=== PATIENT | male | born 1980 | race Caucasian/White ===

== ENCOUNTER 2024-08-03 18:17 | Emergency (ER) | payer SELFPAY ==
--- NOTE | 2024-08-03 19:30 | ED.GENMED ---
History of Present Illness
General
Chief Complaint: Suicidal Ideation
Source: patient, police and other (crisis)
Exam Limitations: none
Time Seen by Provider: 08/03/24 18:20
History of Present Illness
History of Present Illness:
Patient brought to ED for SI. According to police he threatened to kill self. was in possession of gun and knifes. No prior history of crisis intervention.
Past History
Past History
ED Past Medical History: Other (Diverticulitis)
ED Past Surgical History: Bowel resection (temporary colostomy 2 mos ago )
Social History
Tobacco: Non-smoker
Alcohol: Occasional (admits to drinking [employer])
Drug: None
Review of Systems
Review of Systems
Allergies reviewed?: Yes
All Other Systems: ROS reviewed and negative except as documented in HPI and ROS
Constitutional: Reports no symptoms
EENT: Reports no symptoms
Respiratory: Reports no symptoms
Cardiac: Reports no symptoms
ABD/GI: Reports no symptoms (s/p temporary colostomy 2 mos ago)
: Reports no symptoms
Musculoskeletal: Reports no symptoms
Skin: Reports other (lower abdominal dressing intact. S/p post op infection States he has nursing services in home daily for dressing changes.)
Neurological: Reports no symptoms
Psychiatric: Reports no symptoms
Phy Exam
General Physical Exam
General Presentation: well appearing
General age: appears stated age
General Skin: warm and dry
General Habitus: normal
General Mental: alert
General Hydration: appears well hydrated
Neurological Exam
Neurological Exam: alert, oriented x3, no motor deficits and normal gait
Musculoskeletal Exam
Musculoskeletal Exam: full ROM
Skin Exam
Skin Exam: normal color and warm/dry
Psychiatric Exam
Psychiatric Exam: agitated
Course
Orders/Labs/Results
Orders:
Orders
08/03/24 18:35
1:1 Observation - Suicide/ Violent Behavior As Directed
Crisis Consult Urgent
Reason for Consult: Suicidal Ideation
*Critical Care Note
Total Time (30-74mins, 75-104mins- exclusive of procedures): Not Applicable
Update Note
Update Note:
Patient evaluated by crisis. 302 upheld. He has been accepted by [facility] for inpatient psychiatric . Brte [place] is medically stable for psychiatric admission.
ED Attending Note
-
Portions of this chart may have been created with voice recognition software.� Occasional wrong word or��sound alike� substitutions may have occurred due to the inherent limitations of voice recognition software.
Discharge Plan
Departure
Patient Disposition: Psych Facility
Date of Disposition: 08/03/24
Time of Disposition: 19:37
Patient with high blood pressure during this ER visit?: No
Condition: Fair
Discharge Problem:
Medical clearance for psychiatric admission
Interventions
Interventions:
*Risk Screen - Suicide Last Done: 08/03/24 18:26
*General Assessment Last Done: 08/03/24 19:45
*Neglect/Abuse Screening Last Done: 08/03/24 19:45
*ED- Fall Risk Assessment Last Done: 08/03/24 19:45
*ED COVID-19 Vaccine History Last Done: 08/03/24 19:45
*Nursing Disposition Last Done: 08/03/24 19:45
ED-Psychological Assessment Last Done: 08/03/24 19:45
Discharge Date and Time
Discharge Date/Time: 08/03/24 20:19
Print Language: FRENCH
--- NOTE | 2024-08-03 19:45 | EDRN ---
Report received, police is here [facility]. Crisis aware of this plan for police to take [facility] to the [facility], [place], [employer] in to see patient as well, everyone on board with patient leaving to go [facility] the [facility]
to [facility] care. Patient left in police custody at this time.
== END 2024-08-03 20:19 ==
LOC: EMR 18:17
PROVIDERS: EMERGENCY PHYSICIAN Emergency Medicine
DX: Z00.8 Encounter for other general examination (principal); R45.851 Suicidal ideations
CPT/HCPCS: 99282